=== PATIENT | female | born 1980 | race Asian ===

== ENCOUNTER 2017-06-20 19:23 | Emergency (ER) | payer SELFPAY ==
[~2017-06-20] VITALS: Ht 157.5 cm; Wt 56.8 kg
[2017-06-20 19:35] VITALS: BP 136/86; PULSE 79; RESP 16; O2SAT 100
[2017-06-20 19:54] LABS: BASOPHILS % (AUTO) 0.5 % (0-3); EOSINOPHILS % (AUTO) 1.8 % (0-5); MONOCYTES % (AUTO) 10.2 % (4-12); Mean Corpuscular Hemoglobin 30.9 pg (27.0-35.0); Mean Corpuscular Volume 92.5 fL (81-100); NEUTROPHILS % (AUTO) 50.7 % (40-74); Platelet Count 250 bil/L (150-400)
[2017-06-20 20:14] LABS: Magnesium 1.8 mg/dL (1.6-2.6)
--- NOTE | 2017-06-20 20:20 | ED.REPORT ---
HPI-Abd Pain F 40 and Over Date of Service Jun 20, 2017 ED Provider: Benedict Lynch MD Patient is a 37 year old female with a history of urosepsis, bladder infections , and GERD who presents to the ED complaining of progressively worsening RLQ abdominal cramping onset two days ago. She states that her pain is exacerbated after urinating and having a bowel movement. Additional symptoms include back pain, nausea, vomiting, hematuria, dysuria, urinary frequency, and decreased appetite. Pt denies fever, chills, or diaphoresis. She doesn't think that this is related to her menses, and won't start her menses for two more weeks. Nursing Notes Stated Complaint: POSSIBLE APPENDICITIS, OR KIDNEY INFECTION Chief Complaint: Female Abdominal Pain Nursing Notes Reviewed: Yes ([employer] not reconciled) Allergies: Coded Allergies: morphine (Verified Allergy, Unknown, Abdominal Pain, 06/20/17) itching moxifloxacin (Verified Allergy, Unknown, 06/20/17) sulfamethoxazole (Verified Allergy, Unknown, 06/20/17) trimethoprim (Verified Allergy, Unknown, 06/20/17) azithromycin (Verified Adverse Reaction, Unknown, Abdominal Pain, 06/20/17) Scheduled PRN Ondansetron ODT (Ondansetron ODT) 8 Mg Tab.rapdis 8 MG PO Q4H PRN PRN For Nausea General Time Seen by MD: 20:15 Chief Complaint Abdominal pain Hx Obtained From: Patient Arrived By: Walk-in Sudden in Onset?: No Onset Occurred: 2 days ago Symptom Duration: Constant Progression since Onset: Gradually worsening Location: : RLQ Quality: Painful Severity: Current: Moderate Severity: Maximum: Moderate Exacerbated by: Urination Recent Healthcare: No recent doctor visit, No recent hospitalization Similar Sx Previous: No Risk Factors )( AAA Risk Stratification Risk factors reviewed Past Medical History Past Medical History Urosepsis Nephrolithiasis GERD Past Surgical History Reports: Cholecystectomy Ambulatory Status Independent Review of Systems Decreased appetite Constitutional: Denies: Chills, Fever GI: Reports: Abdominal pain (RLQ ), Nausea, Vomiting Female: Reports: Dysuria, Hematuria, Urinary frequency Musculoskeletal: Reports: Back pain Complete sys rev & neg: except as marked. Skin: Denies Diaphoresis Physical Exam Vital Signs Vital Signs (First) Date Time Temp Pulse Resp B/P Pulse Ox O2 Delivery O2 Flow Rate FiO2 06/20/17 19:35 37.2 79 16 136/86 100 Room Air Initial VS: Reviewed, Vital signs normal Head / Eyes: Atraumatic, Normocephalic Extremities: Vascular intact, Neuro intact, No swelling, No tenderness Skin: Warm, Dry, No cyanosis Neurologic: Alert, Oriented, Nonfocal Psychiatric: Mood/affect normal, Behavior normal, Normal thought content General/Constitutional: Awake, Alert Respiratory / Chest: Atraumatic, Breath sounds NL, Breath sounds = bilat, No respiratory distress Cardiovascular: Heart rate NL, Regular rhythm, Heart sounds NL Abdomen: Soft Tenderness/Guarding/Rebound: Positive: McBurney's point tender Back: Full range of motion Interpretation & Diagnostics Lab Results Interpretation Result Diagram: 06/20/17195006/20/171950 Test 06/20/17 19:51 06/20/17 20:15 White Blood Count 8.4th/mm3 (3.8-10.1) Red Blood Count 4.11mil/mm3 (3.90-5.20) Hemoglobin 12.7g/dL (12.0-15.6) Hematocrit 38.0% (35.0-46.0) Mean Corpuscular Volume 92.5fL (81-100) Mean Corpuscular Hemoglobin 30.9pg (27.0-35.0) Mean Corpuscular Hemoglobin Concent 33.4% (32.0-37.0) Red Cell Distribution Width 11.8% (12.3-15.4) Platelet Count 250bil/L (150-400) Neutrophils (%) (Auto) 50.7% (40-74) Lymphocytes (%) (Auto) 36.6% (14-46) Monocytes (%) (Auto) 10.2% (4-12) Eosinophils (%) (Auto) 1.8% (0-5) Basophils (%) (Auto) 0.5% (0-3) Sodium Level 136mEq/L (134-144) Potassium Level 3.8mEq/L (3.5-5.2) Chloride Level 100mEq/L (97-108) Carbon Dioxide Level 25mmol/L (18-29) Blood Urea Nitrogen 12mg/dL (6-20) Creatinine 0.62mg/dL (0.57-1.00) Estimat Glomerular Filtration Rate 154mL/min (>59) Glucose Level 133mg/dL (60-99) Calcium Level 9.1mg/dL (8.5-10.1) Magnesium Level 1.8mg/dL (1.6-2.6) Total Bilirubin 0.2mg/dL (0.0-1.2) Aspartate Amino Transf (AST/SGOT) 15U/L (0-50) Alanine Aminotransferase (ALT/SGPT) 11U/L (0-32) Alkaline Phosphatase 53U/L (25-150) Total Protein 7.6g/dL (6.4-8.4) Albumin 4.2g/dL (3.4-5.0) Lipase 44U/L (13-60) Hold Campos Top Tube Received (Received) Urine Color Straw (YELLOW) Urine Appearance Clear (CLEAR,HAZY) Urine pH 6.0 (5.0-8.0) Urine Specific Tuttle 1.010 (1.003-1.035) Urine Protein Negativemg/dL (NEG,TRACE) Urine Glucose (UA) Negativemg/dL (NEGATIVE) Urine Ketones Negativemg/dL (NEGATIVE) Urine Occult Blood Trace (NEGATIVE) Urine Nitrite Negative (NEGATIVE) Urine Bilirubin Negative (NEGATIVE) Urine Urobilinogen Normalmg/dL (NORMAL) Urine Leukocyte Esterase Negative (NEGATIVE) Urine RBC 0-2/hpf (0-2) Urine WBC 0-5/hpf (0-5) Urine Epithelial Cells Moderate/hpf (NONE-MOD) Urine Crystals None seen (NONE SEEN) Urine Bacteria Few/hpf (NONE-FEW) Urine Hyaline Casts None/lpf (NONE) Urine Granular Casts None seen (NONE SEEN) Urine Waxy Casts None seen (NONE SEEN) Urine Red Blood Cell Casts None seen (NONE SEEN) Urine White Blood Cell Casts None seen (NONE SEEN) Urine Mucus None seen (None Seen) Urine Trichomonas None seen (NONE SEEN) Urine Yeast None (NONE SEEN) Urinalysis Comment None Urine Culture Reflexed Not indicated Lab Results Interpretation: CBC normal CMP normal negative UA negative CT Abd / Pelvis Interpretation Conclusion: Status post cholecystectomy. Mild biliary dilation likely chronic. Correlate with laboratory values. No specific acute intra-abdominal abnormality. Study type: Abdominal CT IV contrast Interpretation / Wet Read by: Interpret - Radiologist Re-Eval/Medical Decision Med Decision/Clinical Course This is a 37-year-old female referred over from urgent care 2 days of increasing right lower artery pain and discomfort. Slight loss of appetite, no fevers, she's worried about possible UTI she's had urinary infections without typical symptoms in the past. She denies any symptoms at present. She appears mildly uncomfortable, does have tenderness over McBurney's point on initial evaluation. She is afebrile. Blood work was normal, urinalysis is negative, was negative. CT imaging was performed with IV and oral contrast was negative. Patient seen fluids and pain medicine is improved. At this point a dangerous etiologies not been determined. I doubt ovarian torsion cannot find indication for emergent ultrasound imaging, patient's entirely comfortable discharged home with some hydrocodone and routine return cautions. Patient does have some chronic dyspepsia and requested a GI cocktail she not yet had her omeprazole she normally takes-received a dose in the department. However she states This was separate discomfort as her typical symptoms, not related to the right lower quadrant product that brought her in Source of Hx: Old records Re-Evaluation/Progress : Time of Eval: 23:02 Patient Status: Condition improved Re-Evaluation/Progress Note: Patient rechecked. Discussed plan for discharge. Patient understands and agrees with plan. Follow-up and return to ED warnings given. All questions addressed. Differential Diagnosis: Positive: Acute abdominal pain, Negative: Abdominal aortic aneurysm, Appendicitis, Bowel obstruction, C. diff colitis, Cholangitis, Cholecystitis, Cholelithiasis, Contusion abdominal wall, Ectopic preg ruptured, Ectopic , Gun shot wound abdomen, Myocardial infarction, Ovarian torsion, Pancreatitis, Peritonitis, Pyelonephritis, Sexually transmit disease, Stab wound abdomen, Urinary tract infection Counseled Regarding: Diagnosis, Lab results, Need for follow-up, When/why to return to ED Discharge & Departure Primary Impression: Abdominal Pain Generalized Disposition: Home Discharge Condition All VS Reviewed: Yes Condition: Stable Additional Instructions: 1. A dangerous cause of the abdominal pain was not determined. Your blood tests , urine test, and CT scan were reassuringly normal. 2. In most cases of this sort, pain resolves with time alone. 3. Continue your omeprazole at home. 4. If needed for pain take hydrocodone/APAP 1-2 tabs up to every 4-6 hours. Use sparingly. Note: This medication contains a narcotic and causes drowsiness-no driving for at least 4-6 hours after taking. You can also take ondansetron-lead to resolve underneath the tongue-up to every 4 hours if needed for nausea. 5. If you have new, worsening, or uncontrolled symptoms return to the emergency department. Referrals: Alex Tidwell PA-C [facility] Portions of this note were transcribed by Shirlene Welsh. I, Dr. Lynch, personally performed the history, physical exam and medical decision-making; I reviewed and confirmed the accuracy of the information in the transcribed note. copies to: Alex Tidwell PA-C, Matthew F MD Jun 20, 2017 20:20 Shirlene Welsh Jun 20, 2017 20:31
[2017-06-20 20:30] LABS: APPEARANCE,URINE CLEAR (CLEAR,HAZY); COLOR,URINE STRAW (YELLOW)
[2017-06-20 20:31] LABS: OCCULT BLOOD,URINE TRACE (NEGATIVE); UROBILINOGEN,URINE NORMAL (NORMAL)
[2017-06-20] MEDS ORDERED: Ondansetron 2 mg/mL 2 mL Inj IVPUSH ONE (20:35)
[2017-06-20] MEDS ORDERED: 0.9% Sodium Chloride 1,000 ML IV ONE (20:35)
[2017-06-20] MEDS ORDERED: Iohexol 300 mg/mL 30 mL Inj PO ONE (20:45)
[2017-06-20] MEDS ORDERED: Pantoprazole 4 mg/mL 10 mL Inj IVPUSH ONE (21:00)
[2017-06-20] MEDS: HYDROmorphone 0.5 mg/0.5 mL iSecure Syringe IVPUSH PRN ×3 (21:02→22:11)
[2017-06-20] MEDS ORDERED: LidocaineVisc 2%:Antacid 1:1 10 mL Syringe PO ONE ×2 (22:20→23:10)
[2017-06-20] MEDS ORDERED: _HYDROcodone/APAP 5-325 mg Tablet PO PRN (23:10)
[2017-06-20] MEDS ORDERED: _Ondansetron ODT 4 mg Tablet PO PRN (23:10)
[2017-06-20] MEDS ORDERED: ONDA8TAB10 PO (23:20)
[2017-06-20 23:42] VITALS: BP 130/86; PULSE 74; RESP 16; O2SAT 97
[2017-06-20 23:43] VITALS: BP 130/86; PULSE 74; RESP 16; O2SAT 97
--- NOTE | 2017-06-21 09:25 | DRSVH ---
PROCEDURE: CT ABDOMEN AND PELVIS WITH CONTRAST ([id number]) INDICATIONS: RLQ pain TECHNIQUE: After the administration of oral and intravenous contrast, 5 mm thick sections acquired from the diap hragms to the symphysis. 5 mm thick coronal and sagittal reformats were performed. For radiation do se reduction, the following was used: automated exposure control, adjustment of mA and/or kV accordi ng to patient size. COMPARISON: None. FINDINGS: Image quality: Excellent. ABDOMEN: Lung bases: Lung bases are clear. Heart size is normal. Solid organs: Liver and spleen are normal in size and enhancement. Gallbladder has been removed. T here is prominence of the common bile duct measuring 10 mm. Biliary system is non-dilated. Pancreas enhances normally. No adrenal nodules. Kidneys are normal in size and enhancement, without hydrone phrosis. Peritoneum and bowel: Stomach, small bowel, and colon loops are normal in caliber and wall thickness . No free fluid or air. Nodes and vessels: No retroperitoneal or mesenteric adenopathy. Aorta and inferior vena cava are no rmal in caliber. Miscellaneous: No ventral hernias. PELVIS: Genitourinary: Bladder wall thickness is normal. Miscellaneous: No inguinal hernias or adenopathy. Bones: No suspicious bony lesions. No vertebral body compression fractures. IMPRESSION: 1. No acute intra-abdominal or pelvic process. 2. Cholecystectomy with mild prominence of the common bile duct. This could be related to postsurgica l sequela. If clinical concern persists, followup correlation with laboratory values are recommended. Dictated by: Leonie Snyder M.D. on 06/21/2017 at 8:37 Approved by: Leonie Snyder M.D. on 06/21/2017 at 9:22
== END 2017-06-20 23:43 | disposition home or self-care (01) ==
LOC: SED 19:23
DX: R10.84 Generalized abdominal pain (principal); R10.31 Right lower quadrant pain; R11.2 Nausea with vomiting, unspecified; M54.9 Dorsalgia, unspecified; K21.9 Gastro-esophageal reflux disease without esophagitis; Z90.49 Acquired absence of other specified parts of digestive tract; Z88.1 Allergy status to other antibiotic agents; Z88.5 Allergy status to narcotic agent; Z88.8 Allergy status to other drugs, medicaments and biological substances
CPT/HCPCS: 36415; 74177; 80053; 81000; 81025; 83690; 83735; 85025; 96361; 96374; 96375; 96376; 99285; J1170; J2405; J7030; Q9967; S0164